=== PATIENT | male | born 1970 | race Caucasian/White ===

== ENCOUNTER 2017-11-29 21:45 | Emergency (ER) | payer MEDICAID ==
[2017-11-29] MEDS: NEOMYC/POLYMYX/BACIT 30 GM OINT TOP (22:35)
[2017-11-29] MEDS: HYDROCODONE/APAP (10/325) TAB PO (22:35)
== END 2017-11-29 22:41 | disposition home or self-care (01) ==
LOC: E/R 21:45
DX: T20.26XA Burn of second degree of forehead and cheek, initial encounter (principal); X10.2XXA Contact with fats and cooking oils, initial encounter; Y92.9 Unspecified place or not applicable
CPT/HCPCS: 99283; Z7502